=== PATIENT | female | born 1965 | race Caucasian/White ===

== ENCOUNTER 2019-01-14 11:56 | Outpatient (CLI) | payer BC, SELFPAY ==
[2019-01-17 10:15] LABS: FSH 16.9 mIU/ml
== END 2019-01-14 12:16 ==
PROVIDERS: PCP Nurse Practitioner Family; Visit Provider Obstetrics & Gynecology
DX: Z79.890 Hormone replacement therapy (principal)
CPT/HCPCS: 36415; 83001

== ENCOUNTER 2019-06-30 06:54 | Outpatient (CLI) | payer BC, SELFPAY ==
--- NOTE | 2019-06-30 09:10 | DI.RAD_ITS ---
EXAM: XR LUMBAR SPINE COMPLETE INDICATION: LOWER BACK PAIN, M54.5. COMPARISON: No exams were available for comparison TECHNIQUE: 2D digital imaging was performed. FINDINGS: Six views were obtained. There is a mild left convex lumbar scoliosis. There are moderate degenerat christal changes of the SI joints bilaterally. There is marked disc space narrowing at L1-2 and L2-3 and there are prominent hypertrophic changes of the endplates noted at these levels. Mild hypertrophic D MEI noted elsewhere throughout the lumbar region. Facet joints also show hypertrophic changes most pr ominent at L4-5 and L5-S1. No evidence of spondylolysis or spondylolisthesis. IMPRESSION: DJD as described above
== END 2019-06-30 07:14 ==
PROVIDERS: PCP Nurse Practitioner Family; Visit Provider Nurse Practitioner Family
DX: M54.5 Low back pain (principal); M53.3 Sacrococcygeal disorders, not elsewhere classified; M51.36 Other intervertebral disc degeneration, lumbar region; M47.816 Spondylosis without myelopathy or radiculopathy, lumbar region
CPT/HCPCS: 72110

== ENCOUNTER 2021-01-10 02:47 | Outpatient (CLI) | payer BC, SELFPAY ==
[2021-01-10 10:48] LABS: Source Nasal/Nares
[2021-01-10 12:44] LABS: COVID-19 PCR Negative (Negative)
== END 2021-01-10 02:48 | disposition home or self-care (01) ==
LOC: LBO 02:47
PROVIDERS: PCP Nurse Practitioner Family; Visit Provider Surgery
DX: Z20.822 Contact with and (suspected) exposure to COVID-19 (principal); Z01.818 Encounter for other preprocedural examination
CPT/HCPCS: 87635

== ENCOUNTER 2021-01-14 09:35 | Day surgery (SDC) | payer BC, SELFPAY ==
--- NOTE | 2021-01-14 06:53 | PDOC.DSDIS_ITS ---
Discharge Plan Disposition Patient Disposition: HOME Condition: Good Discharge Details Reason For Visit: Colonoscopy Attending Provider: Rachel Rolon Primary Care Provider: Tova Araya Home Meds and New Rx's Prescriptions: Continued ibuprofen 800 MG tablet 800 mg PO TID RF: 0 norethindrone ac-eth estradiol 1 EACH tablet 1 ea PO DAILY RF: 0 lorazepam [Ativan] 0.5 MG tablet 1 mg PO BID RF: 0 ascorbic acid (vitamin C) [Vitamin C] 500 MG capsule, extended release 500 mg PO DAILY RF: 0 vitamin B complex [B-Complex] 1 EACH tablet 1 ea PO DAILY RF: 0 fluticasone propionate [Flonase Allergy Relief] 9.9 ML spray,suspension 9.9 ml NS BID RF: 0 bupropion HCl [Wellbutrin XL] 150 MG tablet extended release 24 hr 150 mg PO DAILY RF: 0 Zyrtec 10 MG capsule 10 mg PO DAILY RF: 0 Discontinued bisacodyl [Dulcolax (bisacodyl)] 5 mg tablet,delayed release (DR/EC) 5 mg PO ONCE Qty: 4 RF: 0 polyethylene glycol 3350 17 gram/dose powder 238 g PO ONCE Qty: 238 RF: 0 Discharge Instructions Instructions: Colorectal Polyps (DC) Additional Instructions: Findings: 3 small polyps Follow up: most likely 5 years Please call if you develop: fevers >101.5 Nausea or Vomiting Abdominal pain that is not transient DAY SURGERY UNIT POST ENDOSCOPY INSTRUCTIONS 1. Because there will be medication in your system for the next 24 hours, you may feel a little sleepy. Your coordination will be affected. Therefore: a. Do not drive or operate dangerous equipment for 24 hours. b. Do not drink alcohol beverages for 24 hours (not even beer). c. Plan to go home and rest for the day. 2. Generally there are no restrictions on your activity after a day or so has gone by, but you may feel a bit fatigued for a few days. 3 After you arrive home you may have a light meal and return to a normal diet as you can tolerate it without feeling sick to your stomach. 4. After surgery, you may feel pain or discomfort. This should be only transient, but if it persists please contact your doctor. 5. If there are any questions regarding the findings of your procedure, please feel free to contact your doctor. 6. If you are unable to contact your doctor with a problem, contact the [facility] at [phone]. 0. Continue all your regular medications unless directed otherwise. I understand the above instructions and have no questions. Signature of Patient or Responsible Adult Escort Date/Time Name of Responsible Adult Escort Signature of Nurse Date/Time Activity:: Activity as Tolerated Diet:: As Tolerated Discharge Orders Discharge Orders: Discharge Order (Routine); Ordered 01/14/21 Ordered By: Rachel Rolon
--- NOTE | 2021-01-14 06:53 | W.COLOREPORT ---
Date of service: 01/14/21 Time of Service: : Colonoscopy Report Date of procedure: 01/14/21 Pre-op diagnosis general: Hx of polyps Post-op diagnosis procedure note: same (ascending polyps x2, sigmoid polyp) Procedure: Colonoscopy with polypectomy Surgeon: Rachel Rolon Anesthesia Type: General:No Airway Estimated blood loss (mL): 3 Pathology: other (ascending polyps x2, sigmoid polyp) Complications: None Disposition: same day Indications: The patient is here for Colonoscopy pre-op. Her last screening was in 2018 and was sessile serrated adenomatous polyps. She has no family history of colon cancer. She has not had any bowel habit changes. -Discussed colonoscopy bowel prep as well as the procedure. Discussed possible complications of the procedure to include bleeding, pain, perforation, missed small lesion/polyp, sore throat, aspiration and adverse reaction to the medications. Questions were answered to patient?s satisfaction. No guarantees were implied or given. I spent 30 minutes in reviewing the record, seeing the patient, providing patient education, answering patient's questions and documenting in the medical record. Prep: Miralax/Dulcolax Procedure Start Time: Procedure End Time: 10:50 Retraction Time: 20 minutes Findings: 3 small polyps Procedure Description: After informed consent was obtained the patient was taken to the procedure room and placed in a left decubitous position. Monitors were applied and a time out was done. The patients name, date of , procedure, allergies to medications and metal in their body was reviewed. The patient was then sedated. Once sedated and comfortable a rectal exam was done. External exam was normal. Internal exam revealed a normal sphincter tone and no palpable masses. The scope was then introduced and retro-flexed. No internal hemorrhoids, polyps or masses were identified on retro-flexion. The scope was then advanced to the cecum without difficulty. The ileocecal vlave and appendiceal orifice were identified. The prep was good. The scope was then slowly retracted over 20 minutes back into the rectum. Polyps were removed with cold forceps in the ascending colon x2 and sigmoid colon x1. There was no diverticulosis noted. The scope was removed and the patient was woken up and taken back to Same day surgery in stable condition. The patient tolerated the procedure well and there were no immediate complications. Follow up: The patient should follow up in 5 years unless they develop changes in bowel habits or other new gastrointestinal complaints.
[2021-01-14 09:48] VITALS: BP 127/82; PULSE 88; RESP 16; TEMP 36.3; O2SAT 98
[2021-01-14] MEDS: Lactated Ringers 1,000 ML 80 ML IV (09:55)
--- NOTE | 2021-01-14 10:31 | BOWEL_PTH ---
PATIENT: Liliane Bellamy LOC: [facility] U#:[id number] AGE/SX: 55/F ROOM: RE01/14/[address]: Rachel Rolon MD : 1965 BED: DIS: 01/14/2021 SPEC #: [id number] RECD: 01/14/21 12:37 STATUS: SEB REQ #: [id number] JEREMY: 01/14/21 10:[address]: Rachel Rolon DEPT: Surgical Specimen RECD BY: Ary Ireland ENTERED: 01/14/21 12:39 SP TYPE: Bowel OTHR DR: Tova Araya Tissues: 1 - BIOPSY BOWEL 2 - BIOPSY BOWEL Procedures: GROSS AND MICRO LEVEL 4 Comments: [id number]
[2021-01-14 11:31] VITALS: BP 108/77; PULSE 75; RESP 16; TEMP 36.4; O2SAT 98
== END 2021-01-14 12:02 | disposition home or self-care (01) ==
LOC: SUR 09:36
PROVIDERS: PCP Nurse Practitioner Family; Visit Provider Surgery
PROC: 0DJD8ZZ Inspection of Lower Intestinal Tract, Via Natural or Artificial Opening Endoscopic (ICD-10-PCS; CPT 45378; principal; 2021-01-14 11:30)
DX: Z12.11 Encounter for screening for malignant neoplasm of colon (principal); Z86.010 Personal history of colon polyps; D12.2 Benign neoplasm of ascending colon
CPT/HCPCS: 45380; 88305; J2001

== ENCOUNTER → 2023-09-03 01:41 | Outpatient (CLI) | payer OTHER, SELFPAY ==
--- NOTE | 2023-09-03 12:50 | DI.MRI_ITS ---
Exam(s) MR LUMBAR SPINE WO EXAM: MR LUMBAR SPINE WO CLINICAL HISTORY: LOW BACK PAIN, M54.50. TECHNIQUE: Multiplanar multisequence MRI of the Lumbar spine was performed. COMPARISON: CR XR LUMBAR SPINE COMPLETE from 06/30/2019 FINDINGS: Bones: The last intervertebral disc space is designated the L5/S1 level for the numbering purpose of this ex amination. The vertebral body heights are well maintained. Cord: The conus tip ends at the T12 level. It is of normal size and signal intensity. T12-L1: No focal disc herniation is present. No central spinal canal stenosis.No neural foraminal st enosis. L1-2:Severe narrowing of the right side of the disc with prominent endplate osteophytes. This causes levoscoliosis. No focal disc herniation is present. No central spinal canal stenosis.Moderate righ t neural foraminal stenosis. Degenerative signal changes in the endplates. L2-3:Asymmetric narrowing of the disc with endplate osteophytes eccentric toward the right. No focal disc herniation is present. No central spinal canal stenosis.No neural foraminal stenosis. Degene rative signal changes in the endplates. L3-4: Mild disc bulging.No focal disc herniation is present. No central spinal canal stenosis.No ne ural foraminal stenosis. L4-5: No focal disc herniation is present. Left-sided facet degenerative changes. No central spinal canal stenosis.Mild left neural foraminal stenosis. L5-S1: No focal disc herniation is present. No central spinal canal stenosis.No neural foraminal st enosis. The visualized SI joints and sacrum are unremarkable. Soft tissues: The paraspinal soft tissues are unremarkable. IMPRESSION: Degenerative disc changes greatest at L1-2 and L2-3. Moderate right neural foraminal narrowing at L1 -2. No focal disc herniation at any level. No central canal stenosis. Mild left neural foraminal narrowing at L4-5 secondary to facet degenerative changes. DATA REPOSITORY:
== END ==
PROVIDERS: PCP Nurse Practitioner Family; Visit Provider Nurse Practitioner Family
DX: M47.816 Spondylosis without myelopathy or radiculopathy, lumbar region (principal)
CPT/HCPCS: 72148

== ENCOUNTER → 2023-09-17 01:59 | Outpatient (CLI) | payer OTHER, SELFPAY ==
--- NOTE | 2023-09-17 | DI.RAD_ITS ---
Exam(s) XR LUMBAR SPINE COMP W FLEX/EX EXAM: XR LUMBAR SPINE COMP W FLEX/EX CLINICAL HISTORY: Mechanical LBP, M54.59. TECHNIQUE: 2D digital imaging was performed of the lumbar spine. Seven images were obtained. AP, l ateral, flexion, extension, right oblique, left oblique and L5-S1 spot views were obtained. COMPARISON: CR XR LUMBAR SPINE COMPLETE from 06/30/2019 FINDINGS: BONES: No fracture or destructive lesion. Vertebral bodies are unremarkable. No facet hypertrophy haresh ntified. DISKS: Significant progression of the degenerative changes at L1-L2 with further disc space narrowing and increased size of the osteophytes. Moderate degenerative changes are also seen at L2-L3 with di sc space narrowing and endplate osteophytes. ALIGNMENT: There is also been progression of the left convex curvature of the spine centered at L1. N o spondylolysis or spondylolisthesis. There is no subluxation with flexion or extension. SOFT TISSUE: Normal. IMPRESSION: 1. Interval progression of the left convex scoliosis. 2. Interval progression of the degenerative changes seen at L1-L2. DATA REPOSITORY: RADIATION DOSE DELIVERED:
== END ==
PROVIDERS: PCP Nurse Practitioner Family; Visit Provider Nurse Practitioner
DX: M54.59 Other low back pain (principal); M47.816 Spondylosis without myelopathy or radiculopathy, lumbar region; M41.9 Scoliosis, unspecified
CPT/HCPCS: 72114

== ENCOUNTER 2023-12-03 07:38 | Day surgery (SDC) | payer OTHER, SELFPAY ==
--- NOTE | 2023-12-02 16:13 | ANES.PREOP_ITS ---
General Info Date of Service Date Performed: 12/03/23 Height: 5 ft 3 in Weight: 61.689 kg Body Mass Index (BMI): 24.0 Surgical Procedure: Operation Date: 12/03/23 09:05 Proposed Procedure Side Surgeon p Colonoscopy Joseph Hilton MD Meds Allergies and Home Medications Allergies Allergy/AdvReac Type Severity Reaction Status Date / Time Sulfa (Sulfonamide Allergy Intermediate Hives Verified 12/03/23 07:59 Antibiotics) erythromycin base AdvReac Severe Other (See Verified 12/03/23 07:59 Comment) Home Medication Medication Instructions Recorded bupropion HCl 300 mg 24 hr tablet, 300 mg PO QAM 10/19/23 extended release lorazepam 0.5 mg tablet (Ativan) 0.5 mg PO DAILY PRN 10/19/23 progesterone micronized 100 mg 100 mg PO QAM 10/19/23 capsule docusate sodium 100 mg capsule 200 mg PO QHS 11/12/23 estradiol 1 mg tablet 1 mg PO DAILY 11/12/23 magnesium citrate,mag oxide 250 mg 500 mg PO DAILY 11/12/23 capsule Current Visit Medications: Current Medications Generic Name Dose Route Start Last Admin Trade Name Freq PRN Reason Stop Dose Admin Ringer's Solution 1,000 mls @ 80 mls/hr 12/03/23 06:00 IV 12/03/23 23:59 INFUSION RUDDY IV Miscellaneous Supplies 1 each 12/03/23 06:00 Iv Access IV 12/03/23 23:59 DIRECTED RUDDY Sodium Chloride 0 ml 12/03/23 06:00 Normal Saline Flush 10 Ml Syr IV 12/03/23 23:59 PRN PRN Sodium Chloride 0 ml 12/03/23 06:00 Normal Saline 10 Ml Vial IJ 12/03/23 23:59 DIRECTED PRN Sterile Water 0 ml 12/03/23 06:00 Water,Injection,Sterile 10 Ml Vial IJ 12/03/23 23:59 DIRECTED PRN PFSH Active Problems Active Problems: Problem Status Onset Code Serrated adenoma of colon ~12/2020 D12.6 Medical History Medical History Herpes zoster acute retinal necrosis Allergic rhinitis Adjustment disorder with mixed anxiety and depressed mood Depression Surgical History Surgical History History of colonoscopy (~12/2020) History of cataract surgery Pt states it was her Rt eye, last October Hx of wisdom tooth extraction Oophrectomy, Both one side is full, one is partial Colonoscopy - MAC (03/01/18) Tobacco Smoking/Tobacco Use Status: Never Alcohol Alcohol Intake: current Alcohol intake frequency: 3 or more drinks per day Alcohol type: wine Substance Use Substance use: Never Substance use type: does not use Details: alcohol: t-2, one glass Vital Signs and Lab Results Vital Signs Most Recent Vital Signs in EMR: Temp Pulse Resp BP Pulse Ox 36.4 C L 79 16 132/79 100 12/03/23 08:04 12/03/23 08:04 12/03/23 08:04 12/03/23 08:04 12/03/23 08:04 Lab Results Blood Type / Crossmatch: 2 No Data to Display Complete Blood Count: No Data to Display Complete Metabolic Panel: No Data to Display Liver Function Panel: No Data to Display Coagulation Panel: No Data to Display Cardiac Panel: No Data to Display Arterial Blood Gas: No Data to Display Venous Blood Gas: No Data to Display Pancreas Panel: No Data to Display Thyroid Panel: No Data to Display Infectious Disease: No Data to Display Blood Cultures: No Data to Display Toxicology Panel: No Data to Display Anesthesia Assessment and Plan Anesthesia History Personal History: No History of Anesthesia Complications Family History: No Family History of Anesthesia Complications Exercise Tolerance Exercise Tolerance: Metabolic Equivalents>4 Cardiac & Pulmonary Exam Cardiac Exam: Normal S1/S2 Heart Sounds Pulmonary Exam: Clear Bilateral Breath Sounds Implantable Cardiac Device Does patient have a Pacemaker or an ICD?: No Airway Exam Known Difficult Airway: No Mallampati Class: 3 Mouth Opening: Normal (> 3cm) Thyromental Distance: Less than 3 cm Neck Range of Motion: Full ROM Neck Circumference: Normal Teeth Condition: Normal Dentition ASA Classification ASA Score: ASA 2 Emergency Case?: No NPO Status NPO Status: NPO Clears >2 hours, Solids >8 hours Anesthesia Plan Resuscitation Status: Full Code Anesthesia Technique: General Anesthesia Airway Planned: Natural Airway Monitors Used: Standard Monitors Preoperative Comments:: 58 yo female for colo. Sig PMHx: depression/anxiety (loraz, bupropion), never smoker, daily EtOH.
--- NOTE | 2023-12-02 18:20 | W.PM.DSUDISC ---
Date of service: 12/03/23 Time of Service: 09:27 Discharge Plan Disposition Patient Disposition: Home Condition: Good Discharge Details Reason For Visit: Screening colonoscopy Attending Provider: Joseph Hilton Primary Care Provider: Tova Araya Home Meds and New Rx's Prescriptions: Continued estradiol 1 mg tablet 1 mg PO DAILY Rx Instructions: off 1 week; repeat cycle magnesium citrate,mag oxide 250 mg capsule 500 mg PO DAILY docusate sodium 100 mg capsule 200 mg PO QHS lorazepam [Ativan] 0.5 mg tablet 0.5 mg PO DAILY PRN Patient Comments: 12/03/23 Pt reports she hasnt taken for over a year. progesterone micronized 100 mg capsule 100 mg PO QAM Rx Instructions: off 7 days; repeat cycle bupropion HCl 300 mg tablet extended release 24 hr 300 mg PO QAM Discontinued bisacodyl [Dulcolax (bisacodyl)] 5 mg tablet,delayed release (DR/EC) 5 mg PO ONCE Qty: 4 0RF Rx Instructions: Take per colonoscopy instructions provided by ordering providers office polyethylene glycol 3350 17 gram/dose powder 17 g PO ONCE Qty: 238 0RF Rx Instructions: Take per colonoscopy instructions provided by ordering providers office Discharge Instructions Instructions: Colorectal Polyps (GEN) Additional Instructions: Liliane, we were able to complete your colonoscopy today without any difficulty. Your prep was excellent, we could see everything just fine. You do have some mild internal hemorrhoids. These typically are little more irritated after the bowel prep. I do not think they need any intervention. If they become bothersome, however, I be more than happy to help you with this if needed. I also found 1 polyp. It was quite small, and I removed it completely. As you have experienced in the past, this will be sent off to the pathologist, and once I know the nature of the polyp, we will use that information, combined with your previous polyps, to decide on the timing of your neck screening colonoscopy. If you have any questions in the meantime, please do not hesitate to call at any point. 1. If tolerated, consume a soft, low fiber diet for 1-2 days. 2. Do not drive, drink alcohol, operate machinery, make critical decisions, or do activities that require coordination or balance for 24 hours. 3. Because air was put into your colon during the procedure, expelling air from your rectum (passing gas or farting) is normal. 4. You may not have a bowel movement for 1-3 days because of the colonoscopy prep. This is normal. 5. Go directly to the emergency room if you notice any of the following: Develop chills (warm to touch), or if you have a thermometer and your temperature is above 101 Difficulty breathing or difficultly swallowing Persistent vomiting Severe abdominal pain, other than gas cramps Severe chest pain Black, tarry stools Any bleeding ? exceeding one tablespoon 6. Call your physician if the site where your intravenous was started becomes red, swollen, painful, and warm to touch. 7. Your physician has reviewed your pre-procedure medications. Please continue to take those medications as previously ordered. You will be given specific information/education regarding any changes to your medications before leaving. Activity:: Activity as Tolerated Diet:: As Tolerated Discharge Orders Discharge Orders: Discharge Order (Routine); Ordered 12/02/23 Ordered By: Joseph Hilton DS: Diagnosis Discharge Diagnosis (1) Encounter for screening colonoscopy: Status: Acute Asessment and Plan: Follow-up on polypectomy results
--- NOTE | 2023-12-02 18:21 | W.COLOREPORT ---
Date of service: 12/03/23 Time of Service: 09:29 Colonoscopy Report Date of procedure: 12/03/23 Pre-op diagnosis general: Screening colonoscopy Post-op diagnosis procedure note: other (Internal hemorrhoids, colon polyp) Procedure: Colonoscopy with polypectomy Surgeon: Joseph Hilton Anesthesia Type: General:No Airway Estimated blood loss (mL): 5 Pathology: other (0.25 cm polyp at 50 cm from the anus) Complications: None Disposition: same day Indications: Chills a 58-year-old woman with a history of a sessile serrated adenoma who needs her next screening colonoscopy Prep: Miralax/Dulcolax Procedure Start Time: 09:00 Procedure End Time: :22 Retraction Time: 13 Findings: Grade 1 internal hemorrhoids, 0.25 cm polyp at 50 cm Procedure Description: After the induction of monitored anesthetic care, and with the patient in left lateral decubitus position, I began by performing an external anorectal exam.? Perineum and skin were normal, as was the anal verge.? There was no evidence of external hemorrhoids.? Next, I performed a digital rectal exam.? I did not appreciate any abnormal findings.? Next, I advanced a colonoscope into the rectal vault.? I performed retroflexion.? There are grade 1 internal hemorrhoids.? Using insufflation, I then advanced the colonoscope beyond the rectal folds and into the sigmoid colon before advancing towards the cecum.? The quality of the prep was excellent.? The scope was noted to be in the cecum by identification of the ileocecal valve and appendiceal orifice.? I then began withdrawing the colonoscope using repeated irrigation as necessary for full evaluation of the colonic mucosa. Around 50 cm from the anal verge I identified a 0.25 cm polyp. ?It appeared sessile in character. ?I was able to remove this with a cold forcep polypectomy. ?I examined the site, and there was minimal bleeding. ?Once this was completed, I continued to withdraw the scope and examine the remainder of the colonic mucosa.?Once the scope was withdrawn to the level of the rectum, great care was taken to examine portions of the rectal folds.? Finally, the scope was withdrawn and the patient was brought to the same-day surgery recovery unit as the anesthetic wore off. ?The findings and instructions were shared with the patient prior to discharge. [place] Bowel Prep [place] Bowel Prep Right Colon: 3 Left Colon: 3 Transverse Colon: 3 Total Score: 9
[2023-12-03 08:04] VITALS: BP 132/79; PULSE 79; RESP 16; TEMP 36.4; O2SAT 100
[2023-12-03] MEDS: Lactated Ringers 1,000 ML 80 ML IV (08:13)
[2023-12-03 08:24] VITALS: BMI 24.0
--- NOTE | 2023-12-03 09:16 | BOWEL_PTH ---
PATIENT: Liliane Bellamy LOC: [facility] U#:[id number] AGE/SX: 58/F ROOM: RE12/03/[address]: Joseph Hilton MD : 1965 BED: DIS: 12/03/2023 SPEC #: [id number] RECD: 12/03/23 12:49 STATUS: SEB RE #: [id number] JEREMY: 12/03/23 09:[address]: Joseph Hilton DEPT: Surgical Specimen RECD BY: Ary Ireland ENTERED: 12/03/23 12:51 SP TYPE: Bowel OTHR DR: Tova Araya Tissues: 1 - BIOPSY BOWEL Procedures: GROSS AND MICRO LEVEL 4 Comments: [id number]
[2023-12-03 09:27] VITALS: BP 101/68; PULSE 75; RESP 16; TEMP 36.6; O2SAT 98
--- NOTE | 2023-12-03 09:29 | W.ANESPOSTOP ---
Postoperative Evaluation Date, Time and Location Date Performed: 12/03/23 Time Performed: :29 Patient Location: Day Surgery Unit Vital Signs Most Recent Imported Vital Signs: Most Recent Vital Signs Temp Pulse Resp BP Pulse Ox 36.6 C 75 16 101/68 98 12/03/23 09:27 12/03/23 09:27 12/03/23 09:27 12/03/23 09:27 12/03/23 09:27 Pain Score Most Recent Pain Score: Most Recent Pain Score Pain Level 0 12/03/23 09:27 Assessment Mental Status: Awake (Alert & Oriented to Patient Baseline) Airway and Respiratory Function: Patent airway with normal (patient baseline) respiratory exam Cardiovascular Function: Hemodynamically Stable Hydration Status: Adequately Hydrated Nausea & Vomiting: No Nausea or Vomiting Pain: Pt. Denies Any Pain Peripheral Nerve Block: Patient did not receive a nerve block
[2023-12-03 09:58] VITALS: BP 112/87; PULSE 62; RESP 16; TEMP 36.5; O2SAT 100
== END 2023-12-03 10:27 | disposition home or self-care (01) ==
LOC: SUR 07:38
PROVIDERS: PCP Nurse Practitioner Family; Visit Provider Surgery
PROC: 0DJD8ZZ Inspection of Lower Intestinal Tract, Via Natural or Artificial Opening Endoscopic (ICD-10-PCS; CPT 45378; principal; 2023-12-03 09:00)
DX: Z12.11 Encounter for screening for malignant neoplasm of colon (principal); K63.5 Polyp of colon; K64.0 First degree hemorrhoids; Z86.010 Personal history of colon polyps; Z86.59 Personal history of other mental and behavioral disorders; F10.90 Alcohol use, unspecified, uncomplicated
CPT/HCPCS: 45380; 88305; J2704

== ENCOUNTER 2024-04-07 10:59 | Outpatient (CLI) | payer OTHER, SELFPAY ==
[2024-04-07 11:22] VITALS: BP 134/92; PULSE 72; RESP 20; TEMP 36.6; O2SAT 100
[2024-04-07 11:49] VITALS: BP 136/90; PULSE 75; RESP 10; O2SAT 100
[2024-04-07] MEDS: Bupivacaine 0.5% Pres-Free 10 ML VIAL IJ (11:51)
[2024-04-07] MEDS: Nerve Block Tray 1 EACH MC (11:51)
[2024-04-07] MEDS: Omnipaque 240 MG/ML 50 ML BTL IJ (11:51)
--- NOTE | 2024-04-07 11:58 | DI.RAD_ITS ---
Exam(s) XR PAIN CLINIC LUMBAR SP 2V EXAM: XR PAIN CLINIC LUMBAR SP 2V CLINICAL HISTORY: Dx: Lumbar Spondylosis. TECHNIQUE: Fluoroscopy was provided for the referring physician for guidance with performing pain cl inic injection procedure. COMPARISON: No exams were available for comparison FINDINGS: Please see procedure note for details. Fluoro time: 32.8 seconds RADIATION DOSE DELIVERED: ana Cortez=4.84 mGy
--- NOTE | 2024-04-21 12:06 | PDOC.PAIN ---
Date of service: 04/07/24 Time of Service: 13:00 Pain Managment Procedure Note Procedure Note Procedure Note: PROCEDURE NOTE Left Lumbar Medial Branch Blocks #1 Date of Service: April 07, 2024 Patient: Liliane Bellamy Provider: Edgar Grajeda DO, MPH Liliane Jeff Bellamy has been referred to the [facility] for lumbar medial branch blocks. Pre-operative diagnosis: Lumbar Spondylosis without Myelopathy Post-operative diagnosis: Same Pre-procedure pain: VAS= 6/10 COMMENTS: I previously evaluated her in the office. Her symptoms are unchanged. Jemima was interviewed and the medical records were reviewed. There were no medical, pharmacologic, radiographic or other structural contraindications to attempting fluoroscopically guided local anesthetic lumbar medial branch blocks. Risks and potential side effects were discussed. I also discussed the potential benefit(s) of the procedure with Liliane, and voiced concerns were addressed. After Liliane was completely informed about the procedure, the printed consent form was signed. A standard time-out procedure was performed. Liliane was placed in the prone position on the fluoroscopy table. Automated blood pressure cuff and pulse oximeter were applied. The skin entry points for approaching the anatomic target points of the segmental medial branches of left L3,L4,L5 were identified with fluoroscopy and marked. The skin at the target site area was thoroughly prepared with Chlorhexadine. The skin was then draped. Next, a 25 gauge 3.5 spinal needle was placed under fluoroscopic guidance down on to the target point (the articular pillar) for each respective segmental medial branch. Position was confirmed in A/P and lateral views. Aspiration revealed no blood or clear fluid. Next, 0.25ml of omnipaque 240 was injected at each level. No contrast following a vascular or neural pattern was visualized under continuous fluoroscopy. Next, 0.25 ml of preservative-free 0.5% bupivicaine was injected at each level. There was no unusual discomfort expressed by Liliane. The needles were withdrawn without difficulty. (49 mls of Omnipaque was wasted) Liliane was observed and was without hemodynamic, neurologic, or allergic reactions.? Fluoroscopic images were digitally archived. Provacative testing using the Modified Gonzalez's facet loading test- Left side Directly before the block VAS (0-10) = 6/10 Five minutes after the block VAS (0-10) = 0/10 Percentage relief obtained with this diagnostic block 100% Any improved physical functioning directly after the blocks? Able to move her low back with no pain. Follow up plans and appointments were discussed with Liliane. Liliane was instructed to keep careful note of how the usual pain was modified by these injections. Specifically, to keep a pain diary for the next 4 hours using a numeric pain scale of 0-10 and report these results. Post procedure instruction was given as documented in the nursing documentation and having met discharge criteria, the patient was [facility] from the [facility]. Based on the medial branches blocked today, if they patient has adequate relief and we are able to proceed to radiofrequency ablation, the treatment should result in the denervation of the left L4-L5 and L5-S1 facet joints. We would expect to denervate a total of 2 facets during the radiofrequency ablation. COMMENTS: No apparent complications. Post-procedure pain: VAS= 0/10 Liliane will call back with 0-4 hour post-procedure pain scores. I personally performed the entire procedure. EDGAR GRAJEDA DO, MPH ABPM&R-subspecialty board certification in Pain Medicine [facility] [facility]
== END 2024-04-07 11:00 | disposition home or self-care (01) ==
LOC: PC 10:59
PROVIDERS: PCP Nurse Practitioner Family; Visit Provider Preventive Medicine Occupational Medicine
DX: M47.817 Spondylosis without myelopathy or radiculopathy, lumbosacral region (principal)
CPT/HCPCS: 64493; 64494; 72100; J0665; Q9967

== ENCOUNTER 2024-04-21 10:34 | Outpatient (CLI) | payer OTHER, SELFPAY ==
[2024-04-21 10:38] VITALS: BP 118/80; PULSE 67; RESP 20; TEMP 36.7; O2SAT 99
[2024-04-21 11:24] VITALS: O2SAT 99
[2024-04-21 11:30] VITALS: PULSE 73; RESP 12; O2SAT 100
[2024-04-21 11:36] VITALS: BP 127/88; PULSE 74
--- NOTE | 2024-04-21 11:37 | DI.RAD_ITS ---
Exam(s) XR PAIN CLINIC LUMBAR SP 2V EXAM: XR PAIN CLINIC LUMBAR SP 2V CLINICAL HISTORY: Lumbar Spondylosis TECHNIQUE: 2D and realtime digital imaging was performed. CONTRAST MATERIAL: Refer to procedure report. COMPARISON: No exams were available for comparison FINDINGS: Fluoroscopy was provided for Dr. Grajeda during the performance of a lumbar medial branch block. Ira herzog refer to the procedure report for complete details. Ka,r=5.61 mGy IMPRESSION: RADIATION DOSE DELIVERED: 0.0 0.0 0
[2024-04-21] MEDS: Bupivacaine 0.5% Pres-Free 10 ML VIAL IJ (11:40)
[2024-04-21] MEDS: Nerve Block Tray 1 EACH MC (11:40)
[2024-04-21] MEDS: Omnipaque 240 MG/ML 50 ML BTL IJ (11:40)
--- NOTE | 2024-04-21 12:01 | PDOC.PAIN_ITS ---
Date of service: 04/21/24 Time of Service: 12:01 Pain Managment Procedure Note Procedure Note Procedure Note: PROCEDURE NOTE Left Lumbar Medial Branch Blocks Date of Service: April 21, 2024 Patient: Liliane Bellamy Provider: Joel Grajeda DO, MPH Liliane Jeff Bellamy has been [facility] for lumbar medial branch blocks. 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 was interviewed and the medical records were reviewed. There were no med ical, pharmacologic, radiographic or other structural contraindications to attempting fluoroscopically guided local anesthetic lumbar medial branch blocks. Risks and potential side effects were discussed. I also discussed the potential benefit(s) of the procedure with Liliane, and voiced concerns were addressed. After Liliane was completely informed about the procedure, the printed consent form was signed. A standard time-out procedure was performed. Liliane was placed in the prone position on the fluoroscopy table. Automated blood pressure cuff and pulse oximeter were applied. The skin entry points for approaching the anatomic target points of the segmental medial branches of left L3,L4,L5 were identified with fluoroscopy and marked. The skin at the target site area was thoroughly prepared with Chlorhexadine. The skin was then draped. Next, a 25 gauge 3.5 spinal needle was placed under fluoroscopic guidance down on to the target point (the articular pillar) for each respective segmental medial branch. Position was confirmed in A/P and lateral views. Aspiration revealed no blood or clear fluid. Next, 0.25ml of omnipaque 240 was injected at each level. No contrast following a vascular or neural pattern was visualized under continuous fluoroscopy. Next, 0.25 ml of preservative-free 0.5% bupivicaine was injected at each level. There was no unusual discomfort expressed by Liliane. The needles were withdrawn without difficulty. (49 mls of Omnipaque was wasted) Liliane was observed and was without hemodynamic, neurologic, or allergic reactions.? Fluoroscopic images were digitally archived. Provacative testing using the Modified Gonzalez's facet loading test- Left side Directly before the block VAS (0-10) = 5/10 Five minutes after the block VAS (0-10) = 0/10 Percentage relief obtained with this diagnostic block 100% Any improved physical functioning directly after the blocks? Able to move her back with ease Follow up plans and appointments were discussed with Liliane. Liliane was instructed to keep careful note of how the usual pain was modified by these injections. Specifically, to keep a pain diary for the next 4 hours using a numeric pain scale of 0-10 and report these results. Post procedure instruction was given as documented in the nursing documentation and having met discharge criteria, the patient was [facility]. Based on the medial branches blocked today, if they patient has adequate relief and we are able to proceed to radiofrequency ablation, the treatment should result in the denervation of the left L4-L5 and L5-S1 facet joints. We would expect to denervate a total of 2 facets during the radiofrequency ablation. COMMENTS: No apparent complications. Post-procedure pain: VAS= 0/10 Liliane will call back with 0-4 hour post-procedure pain scores. I personally performed the entire procedure. JOEL GRAJEDA DO, MPH ABPM&R-subspecialty board certification in Pain Medicine [facility] [facility]
== END 2024-04-21 10:35 | disposition home or self-care (01) ==
LOC: PC 10:35
PROVIDERS: PCP Nurse Practitioner Family; Visit Provider Preventive Medicine Occupational Medicine
DX: M47.816 Spondylosis without myelopathy or radiculopathy, lumbar region (principal)
CPT/HCPCS: 64493; 64494; 72100; J0665; Q9967

== ENCOUNTER 2024-06-23 11:22 | Outpatient (CLI) | payer OTHER, SELFPAY ==
[2024-06-23 11:38] VITALS: BP 118/95; PULSE 66; RESP 18; TEMP 36.7; O2SAT 100
[2024-06-23] MEDS: Midazolam 2 MG/2 ML VIAL IVP (12:20)
[2024-06-23] MEDS: fentaNYL 100 MCG/2 ML VIAL IVP (12:20)
--- NOTE | 2024-06-23 12:48 | DI.RAD_ITS ---
Exam(s) XR PAIN CLINIC LUMBAR SP 2V EXAM: XR PAIN CLINIC LUMBAR SP 2V CLINICAL HISTORY: DX: Lumbar Spondylosis TECHNIQUE: 2D and realtime digital imaging was performed. Radiologist not present. CONTRAST MATERIAL: None. COMPARISON: No exams were available for comparison FINDINGS: Fluoroscopy was provided for pain management therapy. Please refer to procedure report or details. Radiation Exposure Index: Ka,r=5.30 mGy IMPRESSION: As above. RADIATION DOSE DELIVERED:
--- NOTE | 2024-06-23 12:52 | PDOC.PAIN_ITS ---
Date of service: 06/23/24 Time of Service: 12:52 Pain Managment Procedure Note Procedure Note Procedure Note: PROCEDURE NOTE LEFT LUMBAR RADIOFREQUENCY ABLATION Date of Service: June 23, 2024 Patient:? Liliane Bellamy? Provider:? Joel Grajeda DO, MPH Liliane Bellamy has been [facility] to [facility] Left Lumbar Radiofrequency Ablation with the [employer] Machine.? Pre Operative Diagnosis: Lumbosacral Spondylosis without Myelopathy ICD-10 M47.816 Post Operative Diagnosis: Same Pre procedure pain; VAS= 6/10 Comments: She did well with the LMBBs x 2 PROCEDURE: Radiofrequency Ablation of medial branches - Left L3, L4, L5 and lateral branches of bilateral S1. Liliane?was interviewed and the medical record was reviewed.? There were no medical, pharmacologic, radiographic or other structural contraindications to attempting fluoroscopically guided LEFT Lumbar Radiofrequency Ablation.?Risks and expected side effects as well as potential benefit of the procedure were reviewed with Liliane, and the patient's voiced concerns were addressed.? The printed consent form was signed.? Standard time-out procedure was performed. Liliane was brought into the fluoroscopy suite and positioned into the prone position on the fluoroscopy table and allowed to adjust to a position of comfort. A grounding pad was placed on the left abdomen. The sterile field was prepared using chlorhexidine preparation of the skin and sterile draping. Local anesthesia superficial and deep was provided by local infiltration of 2% lidocaine. A 17g 100 mm radiofrequency introducer needle was placed to the planned anatomic targets guided with intermittent fluoroscopy with a perpendicular approach to terminally place at the junction of the superior articular process and the transverse process of the left L4, L5, the base of the sacral ala on the left for the L5 medial branch nerve and the area between base of the sacral ala to the S1 foramen on the left. The stylets were removed and radiofrequency probes with a 4mm active tip were then inserted. Needle tip position of the probes was verified in the AP, oblique, and lateral views. At each site, the medial branch nerve was stimulated at 2 Hz to a maximum 1-2 volts determined to finalize safe needle and electrode placement. The patient was awake and responsive during this portion of the procedure. Each target was anesthetized with 1-2 mL of 2 % Lidocaine for anesthesia for lesioning and then each target was lesioned at 80 degrees Celsius for 2 minutes and 30 seconds. Tissue impedances were noted to be between 250 and 500 Ohms. I then injected 1/4 cc of Depomedrol (40 mg/cc) followed by 1 cc of 0.5% Bupivacaine at each segmental sensory nerve. There was no unusual discomfort expressed by Liliane. The needles were withdrawn without difficulty and bandages placed over the needle placement sites, the patient was observed and was without hemodynamic, neurologic, or allergic reactions. Fluoroscopic images were digitally archived. POST PROCEDURE EVALUATION: IMPRESSION: 1. Summary of procedure. Medication given is documented in the MAR. 2. Follow up plan: Liliane to contact [facility] as needed.?This procedure may be repeated if the patient achieves at least 50% improvement in pain/function for at least 6 months. 3. Estimated Blood Loss: <5 mls 4. Fluoroscopy time: Documented in the EMR. Follow up plans and appointments were discussed with the Liliane. Post procedure i nstruction was given as documented in nursing documentation and having met discharge criteria, Liliane was discharged from the [facility]. COMMENTS: No apparent complications. Post-procedure pain: VAS= 0/10. I personally completed the entire procedure. JOEL GRAJEDA DO, MPH ABPM&R - Subspecialty board certification in Pain Medicine [facility] [facility]
[2024-06-23] MEDS: Bupivacaine 0.5% Pres-Free 10 ML VIAL IJ (12:53)
[2024-06-23] MEDS: Lidocaine 2% Multi-Dose 20 ML VIAL IJ (12:53)
[2024-06-23] MEDS: methylPREDNISolone ACETATE 40 MG/ML VIAL IJ (12:54)
[2024-06-23] MEDS: Nerve Block Tray 1 EACH MC (12:54)
== END 2024-06-23 11:23 | disposition home or self-care (01) ==
LOC: PC 11:23
PROVIDERS: PCP Nurse Practitioner Family; Visit Provider Preventive Medicine Occupational Medicine
DX: M47.816 Spondylosis without myelopathy or radiculopathy, lumbar region (principal)
CPT/HCPCS: 64635; 64636; 72100; J0665; J1010; J2003; J2250; J3010

== ENCOUNTER 2025-06-06 10:37 | Outpatient (CLI) | payer OTHER, SELFPAY ==
[2025-06-06 12:37] LABS: Abs Immature Grans 0.01 10^3/uL (0.0-0.06); HCT 40.6 % (36.0-46.0); HGB 13.5 g/dL (11.2-15.7); Immature Grans % 0.1 %; MCH 31.3 pg (27.0-33.0); MCHC 33.3 % (32.0-36.0); MCV 94 fL (80-95); MPV 8.9 fL (8.0-11.0); Platelet Count 257 10^3/uL (130-400); RBC 4.32 10^6/uL (3.93-5.22); RDW 12.6 % (11.7-14.6); RDW-SD 43.6 fL; WBC 7.98 10^3/uL (4.4-10.8)
[2025-06-06 13:15] LABS: ALT 24 U/L (14-59); AST 17 U/L (15-37); Albumin 4.5 g/dL (3.4-5.0); Alkaline Phosphatase 92 U/L (46-116); Amylase 42 U/L (25-115); Anion Gap 9.7 mmol/L (3-11); BUN 17 mg/dL (7-18); Bilirubin, Total 0.9 mg/dL (0.2-1.0); CO2 28.3 mmol/L (21.0-32.0); Calcium 10.1 mg/dL (8.5-10.1); Chloride 99 mmol/L (98-107); Estimated GFR 74.57 (mL/min/1.73m2); Glucose 92 mg/dL (74-106); Lipase 21 U/L (<78); Potassium 4.0 mmol/L (3.5-5.1); Sodium 137 mmol/L (136-145); Total Protein 8.6 g/dL (6.4-8.2)
== END 2025-06-06 10:38 | disposition home or self-care (01) ==
LOC: LBO 10:38
PROVIDERS: PCP Nurse Practitioner Family; Visit Provider Nurse Practitioner Family
DX: R10.13 Epigastric pain (principal)
CPT/HCPCS: 36415; 80053; 83690; 82150; 83013; 85025

== ENCOUNTER 2025-06-13 03:46 | Outpatient (CLI) | payer OTHER, SELFPAY ==
[2025-06-13 14:15] LABS: ALT 27 U/L (14-59); AST 19 U/L (15-37); Albumin 4.5 g/dL (3.4-5.0); Alkaline Phosphatase 89 U/L (46-116); Bilirubin, Total 0.6 mg/dL (0.2-1.0); Total Protein 8.1 g/dL (6.4-8.2)
[2025-06-13 19:48] LABS: Bilirubin, Direct 0.1 mg/dL (0.0-0.2)
== END 2025-06-13 03:47 | disposition home or self-care (01) ==
LOC: LBO 03:47
PROVIDERS: PCP Nurse Practitioner Family; Visit Provider Nurse Practitioner Family
DX: R77.8 Other specified abnormalities of plasma proteins (principal)
CPT/HCPCS: 36415; 80076

== ENCOUNTER 2025-06-19 07:37 | Outpatient (CLI) | payer OTHER, SELFPAY ==
[2025-06-19 07:54] LABS: Abs Immature Grans 0.01 10^3/uL (0.0-0.06); HCT 40.7 % (36.0-46.0); HGB 14.0 g/dL (11.2-15.7); Immature Grans % 0.2 %; MCH 31.5 pg (27.0-33.0); MCHC 34.4 % (32.0-36.0); MCV 92 fL (80-95); MPV 8.8 fL (8.0-11.0); Platelet Count 238 10^3/uL (130-400); RBC 4.44 10^6/uL (3.93-5.22); RDW 12.3 % (11.7-14.6); RDW-SD 41.1 fL; WBC 6.39 10^3/uL (4.4-10.8)
== END 2025-06-19 07:38 | disposition home or self-care (01) ==
LOC: LBO 07:37
PROVIDERS: PCP Nurse Practitioner Family; Visit Provider Nurse Practitioner Family
DX: R10.13 Epigastric pain (principal)
CPT/HCPCS: 36415; 85025